=== PATIENT | female | born 2000 | race Caucasian/White ===

== ENCOUNTER 2019-11-24 00:15 | Emergency (ER) | payer BC ==
--- NOTE | 2019-11-24 00:34 | PDOC ---
History of Present Illness - General Chief Complaint: Laceration Stated Complaint: HEAD LACERATION Time Seen by Provider: 11/24/19 00:34 History Source: Patient Exam Limitations: No Limitations - History of Present Illness Initial Comments: 11/24/19 01:03 19 year old previously healthy female presenting w R scalp lac s/p fall. Endorses having 1 drink last night, playing dizzy bat which made pt dizzy and lose balance. Denies LOC, vision changes, headache, n/v. Doesn't remember last tdap. Past History - Medical History Allergies/Adverse Reactions: Allergies Allergy/AdvReac Type Severity Reaction Status Date / Time No Known Allergies Allergy Verified 11/24/19 00:39 Review of Systems - Review of Systems Constitutional: No: Chills, Fever HEENTM: No: Eye Pain, Ear Discharge Respiratory: No: Cough, Shortness of Breath Cardiac (ROS): No: Chest Pain, Lightheadedness ABD/GI: No: Nausea, Vomiting : No: Burning, Dysuria Musculoskeletal: No: Back Pain, Joint Pain Integumentary: No: Bruising, Dryness Neurological: No: Headache, Seizure Psychiatric: No: Anxiety, Depression Endocrine: No: Intolerance to Cold, Intolerance to Heat Hematologic/Lymphatic: No: Anemia, Blood Clots *Physical Exam - Physical Exam General Appearance: Yes: Nourished, Appropriately Dressed, Mild Distress HEENT: positive: EOMI, ZHENG, Normal Voice, Hearing Grossly Normal. negative: Scleral Icterus (R), Scleral Icterus (L) Respiratory/Chest: positive: Lungs Clear, Normal Breath Sounds. negative: Chest Tender, Respiratory Distress Cardiovascular: positive: Regular Rhythm, Regular Rate, S1, S2. negative: Edema, Murmur Gastrointestinal/Abdominal: positive: Normal Bowel Sounds, Flat, Soft. negative: Tender, Organomegaly Integumentary: positive: Normal Color, Warm Neurologic: positive: nurse practitioner adult II-XII NML intact, Fully Oriented, Alert, Normal Mood/Affect, Normal Response, Motor Strength 5/5, Responsive, Other (stable gait). negative: Numbness, Confused, Disoriented Medical Decision Making - Medical Decision Making 11/24/19 01:12 19 year old previously healthy female presenting w R scalp lac s/p fall. Wound thoroughly irrigated, closed w 2 justyna, covered w bacitracin. Given tdap. Pt AOx4, non slurred speech, stable gait, clinically sober DC home w wound care f/u Discharge - Discharge Information Problems reviewed: Yes Clinical Impression/Diagnosis: Laceration of head Qualifiers: Encounter type: initial encounter Location of open wound of head: scalp Foreign body presence: without foreign body Qualified Code(s): S01.01XA - Laceration without foreign body of scalp, initial encounter Condition: Improved Disposition: HOME - Follow up/Referral - Patient Discharge Instructions Patient Printed Discharge Instructions: How to Care for a Surgical Wound- [place] Additional Instructions: Your head laceration was closed with 2 justyna Keep the wound dry for the first 24 hours. You can rinse with warm water and soap after. Take tylenol or ibuprofen if you have pain Come back to the ED in 7-10 days to remove the justyna Return to the ED earlier if you are vomiting, worsening headache, vision changes, or the wound becomes infected - Post Discharge Activity
[2019-11-24] MEDS ORDERED: DIPHTH,PERTUSS(ACELL),TET 0.5 ML DISP.SYRIN IM ONE ×2 (00:40→00:47)
[2019-11-24 00:46] VITALS: BMI 22.0
[2019-11-24] MEDS ORDERED: BACITRACIN 15 GM TUBE TOPICAL OINTMENT TP ONE (00:53)
[2019-11-24] MEDS ORDERED: BACITRACIN 0.9 GM PACKET ONE (00:58)
--- NOTE | 2019-11-24 01:08 | PDOC ---
Documentation entered by Monty Paredes SCRIBE, acting as scribe for Karla Price MD. Karla Price MD: This documentation has been prepared by the jjibReggie fagan Alexis, SCRIBE, under my direction and personally reviewed by me in its entirety. I confirm that the documentation accurately reflects all work, treatment, procedures, and medical decision making performed by me. Attending Attestation - Resident Resident Name: Matt Mckeon - ED Attending Attestation I have performed the following: I have examined & evaluated the patient, The case was reviewed & discussed with the resident, I agree w/resident's findings & plan, Exceptions are as noted - HPI HPI: 11/24/19 00:59 The patient is a 19 year old female with no significant past medical history who presents to the ED for evaluation of a laceration on the right side of her head obtained tonight s/p a fall secondary to dizziness/loss of balance. Patient reports having one drink tonight and playing the game dizzy bats which invol ves intentionally spinning around a baseball bat to induce dizziness. The patient denies LOC, chest pain and shortness of breath. Denies fever, chills, nausea, vomiting, and/or any GI symptoms. Denies any symptoms. Denies any other symptoms. Allergies: NKDA - Physicial Exam PE: 11/24/19 01:06 General: well appearing HEENT: ~2cm laceration to R scalp without active bleeding, no other lesions or bruising, no racoon eyes, no chan sign Neuro: awake, alert, oriented x3, speech fluent, face symmetric, gait steady, no focal deficits - Medical Decision Making 11/24/19 01:07 19 yo F with simple scalp lac, clinically sober, no neurologic deficits. Plan: -lac repair -tetanus -d/c with return precautions, return for staple removal This clinical encounter is taking place during a federal and state health care emergency attributable to the novel [place] Virus pandemic. The [place] of the Department of Health and Human Services has declared, pursuant to the Public Health Service Act 319F-3 (42 U.S.C. 247d-6d), that a covered persons activities related to medical countermeasures against COVID-19 will be immune from liability under Federal and State law. Discharge - Discharge Information Problems reviewed: Yes Clinical Impression/Diagnosis: Laceration of head Qualifiers: Encounter type: initial encounter Location of open wound of head: scalp Foreign body presence: without foreign body Qualified Code(s): S01.01XA - Laceration without foreign body of scalp, initial encounter Condition: Improved Disposition: HOME - Follow up/Referral - Patient Discharge Instructions Patient Printed Discharge Instructions: How to Care for a Surgical Wound- [place] Additional Instructions: Your head laceration was closed with 2 carol Keep the wound dry for the first 24 hours. You can rinse with warm water and soap after. Take tylenol or ibuprofen if you have pain Come back to the ED in 7-10 days to remove the carol Return to the ED earlier if you are vomiting, worsening headache, vision changes, or the wound becomes infected - Post Discharge Activity
[2019-11-24 01:57] VITALS: BP 119/70; PULSE 101; TEMP 98.2
== END 2019-11-24 01:10 | disposition home or self-care (01) ==
LOC: JER 00:15
PROC: 3E0234Z Introduction of Serum, Toxoid and Vaccine into Muscle, Percutaneous Approach (ICD-10-PCS; principal; 2019-11-24)
DX: S01.01XA Laceration without foreign body of scalp, initial encounter (principal)
CPT/HCPCS: 90715; 99284-25

== ENCOUNTER 2019-12-01 14:12 | Emergency (ER) | payer BC ==
--- NOTE | 2019-12-01 14:23 | PDOC ---
Suture Removal/Wound Check HPI - History of Present Illness Chief Complaint: Suture/Staple Removal(Here) Stated Complaint: REMOVAL OF STITCHES Time Seen by Provider: 12/01/19 14:20 History Source: Yes: Patient Exam Limitations: Yes: No Limitations Treated at: [facility] ED - Previous ED Treatment Tetanus Immunization: Yes: Up to Date Antibiotics Prescribed: No Past History - Travel History Traveled outside of the country in the last 30 days: No Close contact w/someone who was outside of country & ill: No - Medical History Allergies/Adverse Reactions: Allergies Allergy/AdvReac Type Severity Reaction Status Date / Time No Known Allergies Allergy Verified 11/24/19 00:39 - Psycho-Social/Smoking History Patient Lives Alone: No Lives with/in: parents Smoking History: Never smoked Suture Removal/Wound Check PE - Physical Exam Laceration/Wound Check Symptoms: reports: None Current Severity Level: Mild Pain Localization: None Location of Laceration/Wound: right: Head Pain Radiation: None *Review of Systems - Review of Systems Able to Perform ROS?: Yes Constitutional: No: Symptoms Reported HEENTM: No: Symptoms Reported Respiratory: No: Symptoms reported Cardiac (ROS): No: Lightheadedness Musculoskeletal: No: Symptoms Reported Integumentary: No: Symptoms Reported Neurological: No: Symptoms reported *Physical Exam - Physical Exam General Appearance: Yes: Nourished, Appropriately Dressed. No: Apparent Dis tress HEENT: positive: EOMI Neck: negative: Decreased range of motion Gastrointestinal/Abdominal: negative: Distended Extremity: positive: Normal Inspection Integumentary: positive: Normal Color, Warm, Moist Neurologic: positive: Motor Strength 5/5 (ambulatory) Medical Decision Making - Medical Decision Making 12/01/19 14:21 CC: here for staple removal no complaints Exam: dry intact lac Plan: removed 2 justyna Discharge - Discharge Information Problems reviewed: Yes Clinical Impression/Diagnosis: Removal of staple Condition: Good Disposition: HOME - Follow up/Referral - Patient Discharge Instructions Additional Instructions: keep area clean and dry. may wash gently - Post Discharge Activity
[2019-12-01 14:28] VITALS: BP 121/81; PULSE 105; TEMP 97.8; BMI 21.2
== END 2019-12-01 14:30 | disposition home or self-care (01) ==
LOC: JER 14:12
DX: Z48.02 Encounter for removal of sutures (principal)
CPT/HCPCS: 99281-25